=== PATIENT | female | born 1990 | race Two or more races ===

== ENCOUNTER 2023-06-21 05:40 | Day surgery (SDC) | payer OTHER ==
[2023-06-20 17:03] LABS: HEMATOCRIT 40.8 % (36.0-45.00); HEMOGLOBIN 13.8 g/dL (12.0-15.00); MEAN CELL VOLUME 90.2 fL (80.00-100.00); MEAN CORPUSCULAR HEMOGLOBIN 30.4 pg (27.00-32.0); MEAN CORPUSCULAR HGB CONC 33.7 g/dl (32.0-36.0); PLATELET COUNT 309 K/uL (150-450); RED BLOOD COUNT 4.52 M/uL (4.00-6.00)
[2023-06-20 17:07] LABS: URINE APPEARANCE Clear; URINE BILIRRUBIN Negative (NEGATIVE); URINE BLOOD Negative; URINE COLOR Yellow; URINE GLUCOSE Negative (NEGATIVE); URINE LEUKOCYTE Moderate; URINE NITRATE Negative; URINE PROTEIN Negative (NEGATIVE); URINE UROBILINOGEN 0.2 E.U./dl
[2023-06-20 17:11] LABS: URINE BACTERIA 260.7 uL (0.0-1933); URINE RBC 10.2 uL (0.0-20.8); URINE WBC 16.9 uL (0.0-23.2)
[2023-06-20 17:23] LABS: INR 1.03; PARTIAL THROMBOPLASTIN TIME 29.6 SECONDS (22.0-34.0); PROTHROMBIN TIME 10.8 SECONDS (9.0-11.5)
[2023-06-20 17:26] LABS: ALBUMIN 3.9 gm/dL (3.4-5.0); BILIRUBIN TOTAL 0.46 mg/dL (0.3-1.2); CALCIUM 9.3 mg/dL (8.5-10.1); CREATININE SERUM 0.54 mg/dL (0.55-1.02); GFR 130.02; GLOBULINA 3.6 G/DL (2.4-3.5); POTASSIUM 4.19 mEq/L (3.5-5.1); TOTAL PROTEIN 7.5 gm/dL (6.4-8.2)
[2023-06-21] MEDS ORDERED: POVIDONE-IODINE 118 ML BOTT TOP ONE ×2 (14:25→15:15)
[2023-06-21] MEDS ORDERED: PROMETHAZINE HCL 50 MG/ML AMPUL IM ONE (17:15)
[2023-06-21] MEDS ORDERED: MORPHINE SULFATE 4 MG/ML VIAL IV PRN (17:15)
[2023-06-21] MEDS ORDERED: PROMETHAZINE HCL 50 MG/ML AMPUL ONE (20:13)
== END 2023-06-21 21:00 | disposition home or self-care (01) ==
LOC: EDBD → CIR.AMB 05:40
PROVIDERS: ATTEND Obstetrics & Gynecology Gynecology
DX: O02.1 Missed abortion (principal); O72.2 Delayed and secondary postpartum hemorrhage

== ENCOUNTER 2024-01-13 01:07 | Inpatient (IN) | payer OTHER ==
[~2024-01-13] VITALS: Ht 157.5 cm; Wt 64.4 kg
[2024-01-13 00:20] VITALS: BP 112/74
[2024-01-13] MEDS ORDERED: MAGNESIUM SULFATE IN WATER 500 ML IV SCH (01:15)
[2024-01-13] MEDS ORDERED: RINGERS SOLUTION,LACTATED 1,000 ML IV SCH (01:15)
[2024-01-13 02:43] LABS: HEMATOCRIT 32.8 % (36.0-45.00); MEAN CELL VOLUME 90.5 fL (80.00-100.00); MEAN CORPUSCULAR HEMOGLOBIN 30.4 pg (27.00-32.0); MEAN CORPUSCULAR HGB CONC 33.6 g/dl (32.0-36.0); PH,URINE 6.5 (5.0-8.0); PLATELET COUNT 320 K/uL (150-450); RED BLOOD COUNT 3.62 M/uL (4.00-6.00); RED CELL DISTRIBUTION WIDTH 13.4 % (11.5-14.5); URINE APPEARANCE Cloudy; URINE BILIRRUBIN Negative (NEGATIVE); URINE BLOOD Negative; URINE COLOR Yellow; URINE GLUCOSE Negative (NEGATIVE); URINE KETONE Negative (NEGATIVE); URINE LEUKOCYTE Small; URINE NITRATE Negative; URINE PROTEIN Trace (NEGATIVE); URINE UROBILINOGEN 0.2 E.U./dl
[2024-01-13 02:47] LABS: URINE BACTERIA 2296.7 uL (0.0-1933); URINE EPITHELIAL CELLS 68.7 uL (0.0-38.8); URINE RBC 34.6 uL (0.0-20.8); URINE WBC 45.6 uL (0.0-23.2)
[2024-01-13] MEDS ORDERED: PRENATAL TABLE1 EAC1 PO (03:01)
[2024-01-13] MEDS ORDERED: ADULT LOW DOSE81 M1 PO (03:01)
[2024-01-13 03:07] LABS: INR 0.98; PARTIAL THROMBOPLASTIN TIME 26.6 SECONDS (22.0-34.0); PROTHROMBIN TIME 10.7 SECONDS (9.0-11.5)
[2024-01-13 03:11] LABS: ALBUMIN 2.5 gm/dL (3.4-5.0); BILIRUBIN TOTAL 0.26 mg/dL (0.3-1.2); CALCIUM 9.8 mg/dL (8.5-10.1); CREATININE SERUM 0.46 mg/dL (0.55-1.02); GFR 155.5; GLOBULINA 3.9 G/DL (2.4-3.5); POTASSIUM 4.38 mEq/L (3.5-5.1); TOTAL PROTEIN 6.4 gm/dL (6.4-8.2)
[2024-01-13 04:00] VITALS: BP 102/67
[2024-01-13 06:35] VITALS: BP 97/58; O2SAT 99
[2024-01-13 16:05] VITALS: BP 103/67
[2024-01-13 19:50] VITALS: BP 104/67
[2024-01-13 23:50] VITALS: BP 101/62
[2024-01-14 03:56] VITALS: BP 99/63
[2024-01-14 07:30] VITALS: BP 91/58
[2024-01-14 11:43] VITALS: BP 113/68
[2024-01-14 15:30] VITALS: BP 92/56
[2024-01-14] MEDS ORDERED: NIFEDIPINE 30 MG TAB.SA.OSM PO SCH (16:00)
[2024-01-14 16:30] VITALS: BP 106/68
[2024-01-14 21:00] VITALS: BP 106/68
[2024-01-15 01:57] VITALS: BP 100/62
[2024-01-15 09:59] VITALS: BP 104/69
[2024-01-15 21:12] VITALS: BP 105/66
[2024-01-16 02:12] VITALS: BP 102/62
[2024-01-16 08:00] VITALS: BP 103/67
== END 2024-01-16 11:11 | disposition home or self-care (01) | DRG 833 ==
LOC: LDR 01:07 → OB/GYN 01-14 15:21
PROVIDERS: ADMIT Obstetrics & Gynecology; ATTEND Obstetrics & Gynecology
PROC: 4A1HXCZ Monitoring of Products of Conception, Cardiac Rate, External Approach (ICD-10-PCS; principal; 2024-01-13)
PROC: BY4DZZZ Ultrasonography of Second Trimester, Multiple Gestation (ICD-10-PCS; 2024-01-13)
PROC: BU4CZZZ Ultrasonography of Uterus and Ovaries (ICD-10-PCS; 2024-01-13)
DX: O47.02 False labor before 37 completed weeks of gestation, second trimester (principal); O26.842 Uterine size-date discrepancy, second trimester; Z3A.25 25 weeks gestation of pregnancy; Z20.822 Contact with and (suspected) exposure to COVID-19; O30.032 Twin pregnancy, monochorionic/diamniotic, second trimester

== ENCOUNTER 2024-02-09 14:01 | Outpatient (CLI) | payer OTHER ==
[~2024-02-09 14:01] MED LIST: ADULT LOW DOSE81 M1 PO; PRENATAL TABLE1 EAC1 PO
== END 2024-02-09 14:50 | disposition home or self-care (01) ==
LOC: NST 14:01
PROVIDERS: ATTEND Obstetrics & Gynecology Gynecology
DX: Z34.83 Encounter for supervision of other normal pregnancy, third trimester (principal)

== ENCOUNTER 2024-02-14 14:28 | Inpatient (IN) | payer OTHER ==
[~2024-02-14] VITALS: Ht 157.5 cm; Wt 68.0 kg
[2024-02-14 14:57] VITALS: BP 116/79
[2024-02-14 15:58] LABS: HEMATOCRIT 32.4 % (36.0-45.00); MEAN CELL VOLUME 86.8 fL (80.00-100.00); MEAN CORPUSCULAR HEMOGLOBIN 29.3 pg (27.00-32.0); MEAN CORPUSCULAR HGB CONC 33.8 g/dl (32.0-36.0); PLATELET COUNT 234 K/uL (150-450); RED BLOOD COUNT 3.73 M/uL (4.00-6.00); RED CELL DISTRIBUTION WIDTH 14.1 % (11.5-14.5)
[2024-02-14 16:04] LABS: PH,URINE 6.5 (5.0-8.0); URINE APPEARANCE Clear; URINE BILIRRUBIN Negative (NEGATIVE); URINE BLOOD Negative; URINE COLOR Yellow; URINE GLUCOSE Negative (NEGATIVE); URINE KETONE Negative (NEGATIVE); URINE LEUKOCYTE Trace; URINE NITRATE Negative; URINE PROTEIN Negative (NEGATIVE); URINE UROBILINOGEN 0.2 E.U./dl
[2024-02-14 16:05] LABS: URINE BACTERIA 874.4 uL (0.0-1933); URINE EPITHELIAL CELLS 27.8 uL (0.0-38.8); URINE RBC 23.6 uL (0.0-20.8); URINE WBC 19.6 uL (0.0-23.2)
[2024-02-14 16:12] LABS: URINE CAST 0.15 uL (0.0-1.40)
[2024-02-14] MEDS ORDERED: BETAMETHASONE ACETATE,SOD PHOS 30 MG/5 ML ML IM STA (16:13)
[2024-02-14] MEDS ORDERED: MAGNESIUM SULFATE IN WATER 500 ML IV SCH (16:15)
[2024-02-14] MEDS ORDERED: NIFEDIPINE20 MG PO (16:17)
[2024-02-14] MEDS ORDERED: URSODIOL250 MG PO (16:17)
[2024-02-14] MEDS ORDERED: CETIRIZINE HCL 5 MG/5 ML ML PO STA (16:18)
[2024-02-14 16:22] LABS: INR 0.94; PROTHROMBIN TIME 10.3 SECONDS (9.0-11.5)
[2024-02-14 16:27] LABS: ALBUMIN 2.3 gm/dL (3.4-5.0); BILIRUBIN TOTAL 0.23 mg/dL (0.3-1.2); CALCIUM 9.1 mg/dL (8.5-10.1); CREATININE SERUM 0.54 mg/dL (0.55-1.02); GFR 129.23; GLOBULINA 3.9 G/DL (2.4-3.5); POTASSIUM 4.65 mEq/L (3.5-5.1); TOTAL PROTEIN 6.2 gm/dL (6.4-8.2)
[2024-02-14 20:53] VITALS: BP 111/66; O2SAT 99
[2024-02-14 23:51] VITALS: BP 116/68
[2024-02-15 03:07] VITALS: BP 106/69
[2024-02-15 07:48] VITALS: BP 106/70
[2024-02-15] MEDS ORDERED: CETIRIZINE HCL 5 MG/5 ML ML PO SCH (09:00)
[2024-02-15 12:19] VITALS: BP 101/68
[2024-02-15 15:56] VITALS: BP 101/62
[2024-02-15] MEDS ORDERED: BETAMETHASONE ACETATE,SOD PHOS 30 MG/5 ML ML IM NR (16:15)
[2024-02-15] MEDS ORDERED: RINGERS SOLUTION,LACTATED 1,000 ML IV SCH (17:00)
[2024-02-15 19:46] VITALS: BP 99/62; O2SAT 100
[2024-02-15 23:21] VITALS: BP 101/64; O2SAT 99
[2024-02-16 04:18] VITALS: BP 110/65; O2SAT 99
[2024-02-16 07:53] VITALS: BP 120/73; O2SAT 100
== END 2024-02-16 10:11 | disposition home or self-care (01) | DRG 833 ==
LOC: LDR 14:28
PROVIDERS: ADMIT Obstetrics & Gynecology Gynecology; ATTEND Obstetrics & Gynecology Gynecology
PROC: 4A1HXCZ Monitoring of Products of Conception, Cardiac Rate, External Approach (ICD-10-PCS; principal; 2024-02-14)
DX: O47.03 False labor before 37 completed weeks of gestation, third trimester (principal); O30.093 Twin pregnancy, unable to determine number of placenta and number of amniotic sacs, third trimester; Z3A.30 30 weeks gestation of pregnancy; Z20.822 Contact with and (suspected) exposure to COVID-19

== ENCOUNTER 2024-02-22 16:41 | Inpatient (IN) | payer OTHER ==
[~2024-02-22] VITALS: Ht 157.5 cm; Wt 1.4 kg
[~2024-02-22 16:41] MED LIST changes: +NIFEDIPINE20 MG PO; +URSODIOL250 MG PO
[2024-02-22] MEDS ORDERED: MAGNESIUM SULFATE IN WATER 100 ML IV ONE (17:45)
[2024-02-22] MEDS ORDERED: MAGNESIUM SULFATE IN WATER 500 ML IV SCH (17:45)
[2024-02-22] MEDS ORDERED: RINGERS SOLUTION,LACTATED 1,000 ML IV SCH (17:45)
[2024-02-22 18:27] LABS: HEMATOCRIT 36.1 % (36.0-45.00); HEMOGLOBIN 12.1 g/dL (12.0-15.00); MEAN CELL VOLUME 85.9 fL (80.00-100.00); MEAN CORPUSCULAR HEMOGLOBIN 28.8 pg (27.00-32.0); MEAN CORPUSCULAR HGB CONC 33.5 g/dl (32.0-36.0); PLATELET COUNT 297 K/uL (150-450); RED CELL DISTRIBUTION WIDTH 14.2 % (11.5-14.5)
[2024-02-22 18:31] VITALS: BP 115/78
[2024-02-22 18:47] LABS: INR 0.94; PARTIAL THROMBOPLASTIN TIME 27.3 SECONDS (22.0-34.0); PROTHROMBIN TIME 10.3 SECONDS (9.0-11.5)
[2024-02-22] MEDS ORDERED: FAMOTIDINE/PF 20 MG/2 ML VIAL IV PUSH SCH (18:48)
[2024-02-22 18:51] LABS: ALBUMIN 2.4 gm/dL (3.4-5.0); BILIRUBIN TOTAL 0.21 mg/dL (0.3-1.2); CALCIUM 9.1 mg/dL (8.5-10.1); CREATININE SERUM 0.59 mg/dL (0.55-1.02); GFR 116.68; GLOBULINA 4.2 G/DL (2.4-3.5); POTASSIUM 5.11 mEq/L (3.5-5.1); TOTAL PROTEIN 6.6 gm/dL (6.4-8.2)
[2024-02-22 20:17] VITALS: BP 111/74
[2024-02-22 23:26] VITALS: BP 112/72
[2024-02-23 03:00] VITALS: BP 109/72
[2024-02-23 06:18] VITALS: BP 116/77; O2SAT 97
[2024-02-23] MEDS ORDERED: NIFEDIPINE 60 MG TAB.SA.OSM PO SCH (09:00)
[2024-02-23] MEDS ORDERED: URSODIOL 300 MG CAPSULE PO SCH (09:13)
[2024-02-23 11:28] VITALS: BP 102/66; O2SAT 98
[2024-02-23 16:00] VITALS: BP 96/58
[2024-02-23 20:15] VITALS: BP 113/77
[2024-02-23 23:24] VITALS: BP 109/66
[2024-02-24] MEDS ORDERED: RINGERS SOLUTION,LACTATED 1,000 ML IV SCH (01:15)
[2024-02-24] MEDS ORDERED: MAGNESIUM SULFATE IN WATER 100 ML IV ONE (01:15)
[2024-02-24] MEDS ORDERED: MAGNESIUM SULFATE IN WATER 500 ML IV SCH (01:15)
[2024-02-24] MEDS ORDERED: MORPHINE SULFATE 4 MG/ML VIAL IV ONE (03:00)
[2024-02-24 03:08] VITALS: BP 105/68
[2024-02-24 06:49] VITALS: BP 103/61; O2SAT 97
[2024-02-24 11:11] VITALS: BP 112/71
[2024-02-24 15:15] VITALS: BP 116/69
[2024-02-24] MEDS ORDERED: NIFEDIPINE 60 MG TAB.SA.OSM PO SCH (17:00)
[2024-02-24 19:30] VITALS: BP 121/76
[2024-02-24 23:11] VITALS: BP 113/71
[2024-02-25 04:10] VITALS: BP 103/64
[2024-02-25 07:17] VITALS: BP 114/67
[2024-02-25 11:27] VITALS: BP 100/61
[2024-02-25 15:24] VITALS: BP 107/65
[2024-02-25 19:33] VITALS: BP 120/68
[2024-02-25 23:15] VITALS: BP 110/62
[2024-02-26 04:21] VITALS: BP 110/73
[2024-02-26 07:28] VITALS: BP 107/69
[2024-02-26 11:37] VITALS: BP 106/68
[2024-02-26 12:40] LABS: ALBUMIN 2.1 gm/dL (3.4-5.0); BILIRUBIN TOTAL 0.23 mg/dL (0.3-1.2); CALCIUM 9.2 mg/dL (8.5-10.1); CREATININE SERUM 0.6 mg/dL (0.55-1.02); GFR 114.43; GLOBULINA 3.5 G/DL (2.4-3.5); POTASSIUM 4.85 mEq/L (3.5-5.1); TOTAL PROTEIN 5.6 gm/dL (6.4-8.2)
[2024-02-26 14:12] VITALS: BP 111/73
[2024-02-26 20:00] VITALS: BP 94/57
[2024-02-26 23:47] VITALS: BP 104/67
[2024-02-27 07:58] VITALS: BP 107/68
[2024-02-27 18:17] LABS: HEMATOCRIT 29.3 % (36.0-45.00); MEAN CELL VOLUME 86.5 fL (80.00-100.00); MEAN CORPUSCULAR HEMOGLOBIN 29.5 pg (27.00-32.0); MEAN CORPUSCULAR HGB CONC 34.1 g/dl (32.0-36.0); PLATELET COUNT 212 K/uL (150-450); RED BLOOD COUNT 3.38 M/uL (4.00-6.00); RED CELL DISTRIBUTION WIDTH 13.9 % (11.5-14.5)
[2024-02-27 20:00] VITALS: BP 110/68
[2024-02-28] VITALS: BP 111/71
[2024-02-28] MEDS ORDERED: POLYETHYLENE GLYCOL 3350 17 GM BLIST.PACK PO SCH (09:00)
[2024-02-28 09:14] VITALS: BP 130/80
[2024-02-28 16:00] VITALS: BP 117/77
[2024-02-29 01:00] VITALS: BP 109/74
[2024-02-29 08:30] VITALS: BP 112/72
[2024-02-29] MEDS ORDERED: ENOXAPARIN SODIUM 40 MG/0.4 ML SYRINGE SUBCUTANEO SCH (09:00)
[2024-02-29] MEDS ORDERED: FAMOtidine 20 MG TABLET PO SCH (09:00)
[2024-02-29 16:00] VITALS: BP 118/74
[2024-03-01] VITALS: BP 108/70
[2024-03-01 08:48] VITALS: BP 102/62
[2024-03-01 16:00] VITALS: BP 125/79
[2024-03-02 01:27] VITALS: BP 120/76
[2024-03-02 09:05] VITALS: BP 119/74
[2024-03-02 11:47] LABS: HEMATOCRIT 30.6 % (36.0-45.00); HEMOGLOBIN 10.4 g/dL (12.0-15.00); MEAN CELL VOLUME 86.2 fL (80.00-100.00); MEAN CORPUSCULAR HEMOGLOBIN 29.2 pg (27.00-32.0); MEAN CORPUSCULAR HGB CONC 33.9 g/dl (32.0-36.0); PLATELET COUNT 212 K/uL (150-450); RED BLOOD COUNT 3.55 M/uL (4.00-6.00); RED CELL DISTRIBUTION WIDTH 14.1 % (11.5-14.5)
[2024-03-02 12:12] LABS: ALBUMIN 1.9 gm/dL (3.4-5.0); BILIRUBIN TOTAL 0.22 mg/dL (0.3-1.2); CALCIUM 8.8 mg/dL (8.5-10.1); CREATININE SERUM 0.68 mg/dL (0.55-1.02); GFR 99.04; GLOBULINA 3.5 G/DL (2.4-3.5); POTASSIUM 4.33 mEq/L (3.5-5.1); TOTAL PROTEIN 5.4 gm/dL (6.4-8.2)
[2024-03-02 16:00] VITALS: BP 121/79
[2024-03-03 02:08] VITALS: BP 118/75
[2024-03-03 08:00] VITALS: BP 107/66
[2024-03-03 15:55] VITALS: BP 126/80
[2024-03-04] VITALS: BP 116/74
[2024-03-04 08:00] VITALS: BP 117/77
[2024-03-04 15:07] VITALS: BP 123/80
[2024-03-05 01:09] VITALS: BP 121/73
[2024-03-05 08:35] VITALS: BP 122/69
[2024-03-05 13:19] VITALS: BP 119/76
[2024-03-05 14:38] VITALS: BP 131/78
[2024-03-06] VITALS: BP 122/74
[2024-03-06 08:31] VITALS: BP 122/78
[2024-03-06 17:57] VITALS: BP 130/80
[2024-03-06 21:31] VITALS: BP 120/76
[2024-03-06] MEDS ORDERED: CITRIC ACID/SODIUM CITRATE 30 ML BLIST.PACK PO SCH (22:45)
[2024-03-06] MEDS ORDERED: CEFAZOLIN SODIUM 1,000 MG VIAL IV SCH (22:45)
[2024-03-06] MEDS ORDERED: RINGERS SOLUTION,LACTATED 1,000 ML IV SCH (23:15)
[2024-03-06 23:32] VITALS: BP 111/71
[2024-03-07] VITALS: BP 111/71
[2024-03-07 04:50] VITALS: BP 108/73
[2024-03-07 07:22] VITALS: BP 111/73
[2024-03-07] MEDS ORDERED: ERYTHROMYCIN BASE OPHT 1GM EACH TUBE OP ONE (07:45)
[2024-03-07] MEDS ORDERED: OXYTOCIN 20 UNITS/1000ML RL PIGGYBAG IV ONE (07:45)
[2024-03-07] MEDS ORDERED: OXYTOCIN 1,000 ML IV ONE (09:30)
[2024-03-07] MEDS ORDERED: RINGERS SOLUTION,LACTATED 1,000 ML IV SCH (09:30)
[2024-03-07] MEDS ORDERED: MORPHINE SULFATE 4 MG/ML CARTRIDGE IV PRN (09:30)
[2024-03-07] MEDS ORDERED: METHYLERGONOVINE MALEATE 0.2 MG/ML AMPUL IM STA (09:57)
[2024-03-07] MEDS ORDERED: MORPHINE SULFATE 4 MG/ML VIAL IV ONE ×2 (10:05→10:35)
[2024-03-07] MEDS ORDERED: ONDANSETRON HCL 2 MG/ML VIAL IV SCH (12:00)
[2024-03-07] MEDS ORDERED: KETOROLAC TROMETHAMINE 30 MG VIAL IV SCH (12:00)
[2024-03-07] MEDS ORDERED: ACETAMINOPHEN 500 MG GEL..CAP PO SCH (12:00)
[2024-03-07 12:48] VITALS: BP 119/88
[2024-03-07 16:00] VITALS: BP 145/80
[2024-03-07] MEDS ORDERED: SIMETHICONE 125 MG CAPSULE PO SCH (17:00)
[2024-03-07] MEDS ORDERED: GABAPENTIN 300 MG CAPSULE PO SCH (17:00)
[2024-03-08] VITALS: BP 126/83
[2024-03-08 07:43] LABS: HEMATOCRIT 25.1 % (36.0-45.00); MEAN CELL VOLUME 86.4 fL (80.00-100.00); MEAN CORPUSCULAR HGB CONC 33.5 g/dl (32.0-36.0); PLATELET COUNT 189 K/uL (150-450); RED BLOOD COUNT 2.91 M/uL (4.00-6.00); RED CELL DISTRIBUTION WIDTH 14.7 % (11.5-14.5)
[2024-03-08 07:48] LABS: HEMOGLOBIN 8.4 g/dL (12.0-15.00); MEAN CORPUSCULAR HEMOGLOBIN 28.8 pg (27.00-32.0)
[2024-03-08] MEDS ORDERED: OxyCODONE HCL 5 MG TABLET (ROXICODONE) PO PRN (08:00)
[2024-03-08] MEDS ORDERED: KETOROLAC TROMETHAMINE 10 MG TABLET PO SCH (08:00)
[2024-03-08] MEDS ORDERED: DOCUSATE SODIUM 100MG CAP PO SCH (09:00)
[2024-03-08 09:56] VITALS: BP 111/72
[2024-03-08 10:45] LABS: ALBUMIN 1.8 gm/dL (3.4-5.0); BILIRUBIN TOTAL 0.2 mg/dL (0.3-1.2); CALCIUM 8.7 mg/dL (8.5-10.1); CREATININE SERUM 0.64 mg/dL (0.55-1.02); GFR 106.22; GLOBULINA 3.2 G/DL (2.4-3.5); POTASSIUM 4.53 mEq/L (3.5-5.1)
[2024-03-08 16:00] VITALS: BP 123/81
[2024-03-08 17:42] LABS: URINE APPEARANCE Clear; URINE BILIRRUBIN Negative (NEGATIVE); URINE BLOOD Moderate; URINE COLOR Yellow; URINE GLUCOSE Negative (NEGATIVE); URINE KETONE Negative (NEGATIVE); URINE LEUKOCYTE Negative; URINE NITRATE Negative; URINE PROTEIN Trace (NEGATIVE); URINE UROBILINOGEN 0.2 E.U./dl
[2024-03-08 17:46] LABS: URINE BACTERIA 27.7 uL (0.0-1933); URINE EPITHELIAL CELLS 9.7 uL (0.0-38.8); URINE RBC 169.4 uL (0.0-20.8)
[2024-03-08 17:49] LABS: URINE CAST 0.91 uL (0.0-1.40)
[2024-03-08 20:00] VITALS: BP 117/77
[2024-03-09 01:30] VITALS: BP 132/79
[2024-03-09 08:50] VITALS: BP 110/74
[2024-03-09 13:12] VITALS: BP 112/72
[2024-03-09 16:00] VITALS: BP 118/80
[2024-03-09 20:00] VITALS: BP 116/73
[2024-03-10 01:00] VITALS: BP 115/74
[2024-03-10 08:30] VITALS: BP 134/82
[2024-03-10] MEDS ORDERED: KETO10TA2 PO (10:50)
[2024-03-10] MEDS ORDERED: INTEGRA PLUS C1 EACH PO (10:52)
[2024-03-10] MEDS ORDERED: PERCOCET 5-3251 EACH PO (10:52)
== END 2024-03-10 18:11 | disposition home or self-care (01) | DRG 786 ==
LOC: NST 16:41 → OB/GYN 17:24 → LDR 17:24 → OB/GYN 02-26 10:01
PROVIDERS: Obstetrics & Gynecology; Obstetrics & Gynecology Gynecology; ADMIT Obstetrics & Gynecology; ATTEND Obstetrics & Gynecology
PROC: 4A1HXCZ Monitoring of Products of Conception, Cardiac Rate, External Approach (ICD-10-PCS; 2024-02-22)
PROC: BY4GZZZ Ultrasonography of Third Trimester, Multiple Gestation (ICD-10-PCS; 2024-02-28)
PROC: BU4CZZZ Ultrasonography of Uterus and Ovaries (ICD-10-PCS; 2024-02-28)
PROC: BY47ZZZ Ultrasonography of Fetal Umbilical Cord (ICD-10-PCS; 2024-02-28)
PROC: BY4GZZZ Ultrasonography of Third Trimester, Multiple Gestation (ICD-10-PCS; 2024-03-06)
PROC: BY47ZZZ Ultrasonography of Fetal Umbilical Cord (ICD-10-PCS; 2024-03-06)
PROC: 10D00Z1 Extraction of Products of Conception, Low, Open Approach (ICD-10-PCS; principal; 2024-03-07 08:00)
DX: O26.843 Uterine size-date discrepancy, third trimester (principal); K83.1 Obstruction of bile duct; O36.8131 Decreased fetal movements, third trimester, fetus 1; O26.612 Liver and biliary tract disorders in pregnancy, second trimester; O36.5931 Maternal care for other known or suspected poor fetal growth, third trimester, fetus 1; O30.033 Twin pregnancy, monochorionic/diamniotic, third trimester; Z3A.29 29 weeks gestation of pregnancy; O60.14X2 Preterm labor third trimester with preterm delivery third trimester, fetus 2; O26.643 Intrahepatic cholestasis of pregnancy, third trimester; Z37.2 Twins, both liveborn

== ENCOUNTER 2024-03-12 17:17 | Outpatient (CLI) | payer OTHER ==
[~2024-03-12] VITALS: Ht 157.5 cm; Wt 72.6 kg
[~2024-03-12 17:17] MED LIST changes: +INTEGRA PLUS C1 EACH PO; +KETO10TA2 PO; +PERCOCET 5-3251 EACH PO
[2024-03-12 17:21] VITALS: BP 148/83; BP 148/86; O2SAT 100
[2024-03-12] MEDS ORDERED: RINGERS SOLUTION,LACTATED 1,000 ML IV SCH (18:30)
[2024-03-12 18:45] LABS: URINE APPEARANCE Clear; URINE BILIRRUBIN Negative (NEGATIVE); URINE BLOOD Large; URINE COLOR Yellow; URINE GLUCOSE Negative (NEGATIVE); URINE KETONE Negative (NEGATIVE); URINE LEUKOCYTE Trace; URINE NITRATE Negative; URINE PROTEIN Negative (NEGATIVE); URINE UROBILINOGEN 0.2 E.U./dl
[2024-03-12 18:46] LABS: URINE BACTERIA 265.8 uL (0.0-1933); URINE EPITHELIAL CELLS 9.8 uL (0.0-38.8); URINE RBC 10.8 uL (0.0-20.8); URINE WBC 19.4 uL (0.0-23.2)
[2024-03-12 18:50] LABS: HEMATOCRIT 24.3 % (36.0-45.00); HEMOGLOBIN 8.2 g/dL (12.0-15.00); MEAN CELL VOLUME 86.2 fL (80.00-100.00); MEAN CORPUSCULAR HGB CONC 33.6 g/dl (32.0-36.0); PLATELET COUNT 375 K/uL (150-450); RED BLOOD COUNT 2.82 M/uL (4.00-6.00); RED CELL DISTRIBUTION WIDTH 15.7 % (11.5-14.5)
[2024-03-12 19:08] LABS: ALBUMIN 2.3 gm/dL (3.4-5.0); BILIRUBIN TOTAL 0.24 mg/dL (0.3-1.2); CALCIUM 8.5 mg/dL (8.5-10.1); CREATININE SERUM 0.49 mg/dL (0.55-1.02); GFR 144.56; GLOBULINA 3.7 G/DL (2.4-3.5); POTASSIUM 4.6 mEq/L (3.5-5.1)
[2024-03-12] MEDS ORDERED: SOD FERRIC GLUC COMPLX/SUCROSE 125 MG in 0.9 % SODIUM CHLORIDE 100 ML IV SCH (19:10)
[2024-03-12] MEDS ORDERED: MULTIVIT INFUSN,ADULT 4,VIT K 10 ML in DEXTROSE 5 % IN WATER 500 ML IV SCH (19:10)
[2024-03-12 23:45] VITALS: BP 128/74
[2024-03-13 03:07] VITALS: BP 126/75
[2024-03-13 06:19] VITALS: BP 121/70; O2SAT 99
[2024-03-13] MEDS ORDERED: IRON/V.C/V.B12/FOLIC A/VIT. E 1 CAPL CAPLET PO NR (10:50)
[2024-03-13 12:25] VITALS: BP 121/73
[2024-03-13 15:15] VITALS: BP 126/72; O2SAT 99
[2024-03-13 19:11] VITALS: BP 126/73; O2SAT 100
[2024-03-14] MEDS ORDERED: IRON/V.C/V.B12/FOLIC A/VIT. E 1 CAPL CAPLET PO SCH (09:00)
== END 2024-03-13 15:12 | disposition home or self-care (01) ==
LOC: OBS/DEL 17:17
PROVIDERS: ATTEND Obstetrics & Gynecology
DX: R42 Dizziness and giddiness (principal); Z39.2 Encounter for routine postpartum follow-up